=== PATIENT | female | born 1995 | race Caucasian/White ===

== ENCOUNTER 2018-02-20 11:38 | Inpatient (IN) | payer SELFPAY, OTHER ==
[2018-02-20 12:19] LABS: HEMATOCRIT 33.3 % (36.0-47.0); HEMOGLOBIN 11.2 g/dl (12.0-16.0); MEAN CORPUSCULAR HEMOGLOBIN 28.6 pg (27.0-33.0); MEAN CORPUSCULAR HGB CONC 33.6 g/dl (32.0-36.5); MEAN CORPUSCULAR VOLUME 85.2 fl (80.0-96.0); PLATELET COUNT, AUTOMATED 150 10^3/uL (150-450); RED BLOOD COUNT 3.91 10^6/uL (4.00-5.40); WHITE BLOOD COUNT 10.9 10^3/uL (4.0-10.0)
[2018-02-20 12:57] LABS: ALT/SGPT 17 U/L (12-78); AST/SGOT 13 U/L (7-37); BILIRUBIN,TOTAL 0.3 MG/DL (0.2-1.0); CREATININE FOR GFR 0.47 MG/DL (0.55-1.30); GLOMERULAR FILTRATION RATE > 60.0 (>60); LDH LACTATE DEHYDROGENASE 215 U/L (84-246); URIC ACID 4.2 MG/DL (2.6-6.0)
[2018-02-20 21:05] LABS: HEMATOCRIT 32.3 % (36.0-47.0); HEMOGLOBIN 10.7 g/dl (12.0-16.0); MEAN CORPUSCULAR HEMOGLOBIN 28.6 pg (27.0-33.0); MEAN CORPUSCULAR HGB CONC 33.1 g/dl (32.0-36.5); MEAN CORPUSCULAR VOLUME 86.4 fl (80.0-96.0); PLATELET COUNT, AUTOMATED 152 10^3/uL (150-450); RED BLOOD COUNT 3.74 10^6/uL (4.00-5.40); WHITE BLOOD COUNT 9.6 10^3/uL (4.0-10.0)
[2018-02-20 21:37] LABS: ALT/SGPT 18 U/L (12-78); AST/SGOT 14 U/L (7-37); BILIRUBIN,TOTAL 0.3 MG/DL (0.2-1.0); CREATININE FOR GFR 0.54 MG/DL (0.55-1.30); GLOMERULAR FILTRATION RATE > 60.0 (>60); LDH LACTATE DEHYDROGENASE 207 U/L (84-246); URIC ACID 4.6 MG/DL (2.6-6.0)
[2018-02-20] MEDS: ACETAMINOPHEN 500 MG TAB PO (21:42)
[2018-02-21] MEDS ORDERED: miSOPROStol 50 MCG 1/2 TAB (S0191) PO (08:45)
[2018-02-21] MEDS: miSOPROStol 50 MCG 1/2 TAB (S0191) PO ×4 (09:23→21:54)
[2018-02-21] MEDS: LR 1,000 ML IV ×2 (09:45→17:51)
[2018-02-21 09:47] LABS: HEMATOCRIT 29.9 % (36.0-47.0); MEAN CORPUSCULAR HEMOGLOBIN 28.7 pg (27.0-33.0); MEAN CORPUSCULAR HGB CONC 33.4 g/dl (32.0-36.5); MEAN CORPUSCULAR VOLUME 85.7 fl (80.0-96.0); PLATELET COUNT, AUTOMATED 133 10^3/uL (150-450); RED BLOOD COUNT 3.49 10^6/uL (4.00-5.40); WHITE BLOOD COUNT 8.5 10^3/uL (4.0-10.0)
[2018-02-21] MEDS: AMPICILLIN SOD 2 GM in APPROPRIATE DILUENT 20 ML IV (09:48)
[2018-02-21 10:17] LABS: ALT/SGPT 18 U/L (12-78); AST/SGOT 10 U/L (7-37); BILIRUBIN,TOTAL 0.3 MG/DL (0.2-1.0); CREATININE FOR GFR 0.49 MG/DL (0.55-1.30); GLOMERULAR FILTRATION RATE > 60.0 (>60); LDH LACTATE DEHYDROGENASE 180 U/L (84-246); URIC ACID 4.3 MG/DL (2.6-6.0)
[2018-02-21 11:30] LABS: AMPHETAMINES URINE REFLEX NEGATIVE (NEGATIVE); BARBITURATES URINE REFLEX NEGATIVE (NEGATIVE); BENZODIAZEPINES URINE REFLEX NEGATIVE (NEGATIVE); CANNABINOIDS URINE REFLEX NEGATIVE (NEGATIVE); COCAINE METABOLITE URINE REFLE NEGATIVE (NEGATIVE); METHADONE URINE REFLEX NEGATIVE (NEGATIVE); OPIATES URINE REFLEX NEGATIVE (NEGATIVE); PHENCYCLIDINE URINE REFLEX NEGATIVE (NEGATIVE)
[2018-02-21] MEDS: AMPICILLIN SOD 1 GM in APPROPRIATE DILUENT 10 ML IV ×3 (13:27→22:34)
[2018-02-22] MEDS: LR 1,000 ML IV (01:34)
[2018-02-22] MEDS: AMPICILLIN SOD 1 GM in APPROPRIATE DILUENT 10 ML IV ×5 (02:46→18:00)
[2018-02-22] MEDS: OXYTOCIN DRIP 30 UNITS in APPROPRIATE DILUENT 1 EA IV ×4 (07:44→18:41)
[2018-02-22 07:47] LABS: HEMATOCRIT 31.2 % (36.0-47.0); HEMOGLOBIN 10.4 g/dl (12.0-16.0); MEAN CORPUSCULAR HEMOGLOBIN 28.4 pg (27.0-33.0); MEAN CORPUSCULAR HGB CONC 33.3 g/dl (32.0-36.5); MEAN CORPUSCULAR VOLUME 85.2 fl (80.0-96.0); PLATELET COUNT, AUTOMATED 147 10^3/uL (150-450); RED BLOOD COUNT 3.66 10^6/uL (4.00-5.40); RED CELL DISTRIBUTION WIDTH 12.9 % (11.5-14.5); WHITE BLOOD COUNT 11.2 10^3/uL (4.0-10.0)
[2018-02-22] MEDS ORDERED: FENTANYL 2MCG/ML ROPIVACAINE 0.2% IN 0.9% NACL 200ML IVBAG As Ordered (08:09)
[2018-02-22 08:19] LABS: ALT/SGPT 14 U/L (12-78); AST/SGOT 11 U/L (7-37); BILIRUBIN,TOTAL 0.4 MG/DL (0.2-1.0); CREATININE FOR GFR 0.47 MG/DL (0.55-1.30); GLOMERULAR FILTRATION RATE > 60.0 (>60); LDH LACTATE DEHYDROGENASE 196 U/L (84-246); URIC ACID 4.6 MG/DL (2.6-6.0)
[2018-02-22] MEDS ORDERED: REFRIGERATOR IV KEYS XX (09:30)
[2018-02-22] MEDS ORDERED: FENTANYL/ROPIVACAINE/NACL BAG 200 ML EPIDURAL (09:30)
[2018-02-22] MEDS ORDERED: NALOXONE INJ 0.4 MG/1 ML VIAL (J2310) IV (09:30)
[2018-02-22] MEDS ORDERED: diphenhydrAMINE INJ 50MG/ML VIAL (J1200) IV (09:30)
[2018-02-22] MEDS ORDERED: EPIDURAL/PCA KEYS XX (09:30)
[2018-02-22] MEDS ORDERED: EPIDURAL COMMENT XX (09:30)
[2018-02-22] MEDS ORDERED: ePHEDrine SULFATE 25 MG/5 ML(5MG/ML) SYRINGE IV (09:30)
[2018-02-22] MEDS: ONDANSETRON 4MG/2ML VIAL (J2405) IV ×2 (09:47→17:45)
[2018-02-22] MEDS ORDERED: PHYTONADIONE 1 MG/0.5 ML SYRINGE (J3430) IM (15:15)
[2018-02-22] MEDS ORDERED: ERYTHROMYCIN OPHTH OINT OU (15:15)
[2018-02-22] MEDS ORDERED: HEPATITIS B VAC *BIRTH DOSE ONLY*(ENGERIX) 10 MCG/0.5 ML SYRINGE IM (15:15)
[2018-02-22] MEDS ORDERED: OXYTOCIN 30 UNITS IN 0.9% NaCl 500ML IV BAG (J2590) As Ordered ×2 (16:03→16:40)
[2018-02-22 16:34] LABS: MEAN CORPUSCULAR HGB CONC 32.6 g/dl (32.0-36.5); MEAN CORPUSCULAR VOLUME 88.9 fl (80.0-96.0); PLATELET COUNT, AUTOMATED 178 10^3/uL (150-450); RED BLOOD COUNT 2.62 10^6/uL (4.00-5.40); RED CELL DISTRIBUTION WIDTH 13.1 % (11.5-14.5); WHITE BLOOD COUNT 26.6 10^3/uL (4.0-10.0)
[2018-02-22 16:37] LABS: HEMOGLOBIN 7.6 g/dl (12.0-15.5)
[2018-02-22 16:38] LABS: HEMATOCRIT 23.3 % (36.0-47.0)
[2018-02-22 16:46] LABS: INR 1.15; PROTHROMBIN TIME 14.9 SECONDS (12.4-14.5)
[2018-02-22 16:47] LABS: FIBRINOGEN 338 MG/DL (221-452); PARTIAL THROMBOPLASTIN TIME 26.1 SECONDS (26.8-37.9)
[2018-02-22] MEDS ORDERED: ceFAZolin 2 GM/D5W 50 ML IV BAG (J0690 PER 500MG) As Ordered (16:51)
[2018-02-22] MEDS: CARBOPROST TROMETHAMINE 250 MCG/ML AMP IM (17:45)
[2018-02-22] MEDS: miSOPROStol 200 MCG TAB (S0191) PR (17:45)
[2018-02-22] MEDS ORDERED: OXYTOCIN DRIP 30 UNITS in APPROPRIATE DILUENT 1 EA IV (17:45)
[2018-02-22 18:01] LABS: HEMATOCRIT 27.5 % (36.0-47.0); MEAN CORPUSCULAR HEMOGLOBIN 28.8 pg (27.0-33.0); MEAN CORPUSCULAR HGB CONC 32.7 g/dl (32.0-36.5); MEAN CORPUSCULAR VOLUME 88.1 fl (80.0-96.0); PLATELET COUNT, AUTOMATED 126 10^3/uL (150-450); RED BLOOD COUNT 3.12 10^6/uL (4.00-5.40); RED CELL DISTRIBUTION WIDTH 13.1 % (11.5-14.5); WHITE BLOOD COUNT 22.4 10^3/uL (4.0-10.0)
[2018-02-22 18:18] LABS: PARTIAL THROMBOPLASTIN TIME 27.7 SECONDS (26.8-37.9)
[2018-02-22 18:21] LABS: INR 1.26
[2018-02-22] MEDS: miSOPROStol 50 MCG 1/2 TAB (S0191) PO (18:29)
[2018-02-22] MEDS: LACTATED RINGER'S 1000 ML IV (18:30)
[2018-02-22] MEDS ORDERED: METHYLERGONOVINE MALEATE 0.2 MG TAB PO (18:45)
[2018-02-22] MEDS ORDERED: DIBUCAINE 1% OINTMENT 30GM TOP (18:45)
[2018-02-22] MEDS ORDERED: DOCUSATE SODIUM 100 MG CAP PO (18:45)
[2018-02-22] MEDS ORDERED: IBUPROFEN 800 MG TAB PO (18:45)
[2018-02-22] MEDS ORDERED: ACETAMINOPHEN 500 MG TAB PO (18:45)
[2018-02-22] MEDS ORDERED: MEASLES,MUMPS,RUBELLA VACCINE INJ (MMR-II) (90707) SC (18:45)
[2018-02-22 23:12] LABS: HEMATOCRIT 22.9 % (36.0-47.0); HEMOGLOBIN 7.6 g/dl (12.0-15.5); MEAN CORPUSCULAR HEMOGLOBIN 28.6 pg (27.0-33.0); MEAN CORPUSCULAR HGB CONC 33.2 g/dl (32.0-36.5); MEAN CORPUSCULAR VOLUME 86.1 fl (80.0-96.0); PLATELET COUNT, AUTOMATED 117 10^3/uL (150-450); RED BLOOD COUNT 2.66 10^6/uL (4.00-5.40); RED CELL DISTRIBUTION WIDTH 13.7 % (11.5-14.5); WHITE BLOOD COUNT 20.6 10^3/uL (4.0-10.0)
[2018-02-23 06:56] LABS: HEMATOCRIT 19.9 % (36.0-47.0); MEAN CORPUSCULAR HEMOGLOBIN 28.8 pg (27.0-33.0); MEAN CORPUSCULAR HGB CONC 34.2 g/dl (32.0-36.5); MEAN CORPUSCULAR VOLUME 84.3 fl (80.0-96.0); PLATELET COUNT, AUTOMATED 112 10^3/uL (150-450); RED BLOOD COUNT 2.36 10^6/uL (4.00-5.40); RED CELL DISTRIBUTION WIDTH 14.2 % (11.5-14.5)
[2018-02-23 06:59] LABS: HEMOGLOBIN 6.8 g/dl (12.0-15.5)
[2018-02-23 07:22] LABS: ALT/SGPT 15 U/L (12-78); AST/SGOT 26 U/L (7-37); BILIRUBIN,TOTAL 0.3 MG/DL (0.2-1.0); CREATININE FOR GFR 0.49 MG/DL (0.55-1.30); GLOMERULAR FILTRATION RATE > 60.0 (>60); LDH LACTATE DEHYDROGENASE 279 U/L (84-246); URIC ACID 5.3 MG/DL (2.6-6.0)
[2018-02-23 09:27] LABS: IMMEDIATE SPIN CROSSMATCH 1 6
[2018-02-23 12:19] LABS: HEMATOCRIT 25.1 % (36.0-47.0); HEMOGLOBIN 8.6 g/dl (12.0-15.5); MEAN CORPUSCULAR HEMOGLOBIN 28.9 pg (27.0-33.0); MEAN CORPUSCULAR HGB CONC 34.3 g/dl (32.0-36.5); MEAN CORPUSCULAR VOLUME 84.2 fl (80.0-96.0); PLATELET COUNT, AUTOMATED 108 10^3/uL (150-450); RED BLOOD COUNT 2.98 10^6/uL (4.00-5.40); WHITE BLOOD COUNT 13.9 10^3/uL (4.0-10.0)
[2018-02-23] MEDS: PRENATAL VITAMINS CHEWABLE TABLET PO (14:51)
[2018-02-24 08:10] LABS: HEMATOCRIT 22.7 % (36.0-47.0); MEAN CORPUSCULAR HEMOGLOBIN 28.8 pg (27.0-33.0); MEAN CORPUSCULAR HGB CONC 33.5 g/dl (32.0-36.5); PLATELET COUNT, AUTOMATED 101 10^3/uL (150-450); RED BLOOD COUNT 2.64 10^6/uL (4.00-5.40); RED CELL DISTRIBUTION WIDTH 14.2 % (11.5-14.5); WHITE BLOOD COUNT 10.7 10^3/uL (4.0-10.0)
[2018-02-24 08:12] LABS: HEMOGLOBIN 7.6 g/dl (12.0-15.5)
[2018-02-24 08:48] LABS: FETAL SCREEN PROF. 1 1
[2018-02-24] MEDS: PRENATAL VITAMINS CHEWABLE TABLET PO (09:08)
[2018-02-24] MEDS: RHOGAM 300 MCG (1500 IU) INJ (J2790) IM (09:09)
== END 2018-02-24 11:45 | disposition home or self-care (01) | DRG 541 ==
LOC: M LDO 11:38 → M LDI 14:33 → M OBS 02-23 13:43
PROC: 3E0DXGC Introduction of Other Therapeutic Substance into Mouth and Pharynx, External Approach (ICD-10-PCS; 2018-02-21)
PROC: 10E0XZZ Delivery of Products of Conception, External Approach (ICD-10-PCS; principal; 2018-02-22)
PROC: 10D17Z9 Manual Extraction of Products of Conception, Retained, Via Natural or Artificial Opening (ICD-10-PCS; 2018-02-22)
PROC: 30233N1 Transfusion of Nonautologous Red Blood Cells into Peripheral Vein, Percutaneous Approach (ICD-10-PCS; 2018-02-22)
PROC: 30233S1 Transfusion of Nonautologous Globulin into Peripheral Vein, Percutaneous Approach (ICD-10-PCS; 2018-02-24)
DX: O14.94 Unspecified pre-eclampsia, complicating childbirth (principal); O72.0 Third-stage hemorrhage; Z37.0 Single live birth; Z3A.37 37 weeks gestation of pregnancy; Z91.040 Latex allergy status; O69.81X0 Labor and delivery complicated by cord around neck, without compression, not applicable or unspecified

== ENCOUNTER → 2018-02-20 | Outpatient (REF) | payer SELFPAY, OTHER | LOC: M LAB REF 13:22 | DX: Z34.03 Encounter for supervision of normal first pregnancy, third trimester (principal); Z3A.36 36 weeks gestation of pregnancy | CPT/HCPCS: 87081 ==

== ENCOUNTER → 2020-04-22 | Outpatient (REF) | payer OTHER ==
[~2020-04-22] MED LIST: FERR325T3 PO; IBUP-1114 PO; MAPA500T2 PO; PRENTAB9 PO
[2020-04-22 13:57] LABS: HEMATOCRIT 41.6 % (36.0-47.0); HEMOGLOBIN 14.3 g/dl (12.0-15.5); MEAN CORPUSCULAR HEMOGLOBIN 29.6 pg (27.0-33.0); MEAN CORPUSCULAR HGB CONC 34.4 g/dl (32.0-36.5); MEAN CORPUSCULAR VOLUME 86.1 fl (80.0-96.0); PLATELET COUNT, AUTOMATED 186 10^3/uL (150-450); RED BLOOD COUNT 4.83 10^6/uL (4.00-5.40); WHITE BLOOD COUNT 9.2 10^3/uL (4.0-10.0)
[2020-04-22 14:25] LABS: ALT/SGPT 25 U/L (12-78); BILIRUBIN,TOTAL 0.3 MG/DL (0.2-1.0); CREATININE FOR GFR 0.57 MG/DL (0.55-1.30); GLOMERULAR FILTRATION RATE > 60.0 (>60); LDH LACTATE DEHYDROGENASE 191 U/L (84-246); URIC ACID 3.2 MG/DL (2.6-6.0)
[2020-04-22 15:08] LABS: HEPATITIS C VIRUS ABY INDEX 0.1 INDEX (<0.8)
[2020-04-22 15:10] LABS: HIV 1&2 SCREEN CENTAUR NEGATIVE (NEGATIVE)
== END ==
LOC: M PLALAB 11:20
PROVIDERS: ATTEND Advanced Practice Midwife
DX: O09.291 Supervision of pregnancy with other poor reproductive or obstetric history, first trimester (principal)

== ENCOUNTER → 2020-04-24 | Outpatient (CLI) | payer OTHER ==
--- NOTE | 2020-04-25 11:09 | REP ---
REASON: Menorrhagia. Transvesical and transvaginal imaging was performed. The uterus measures 10.1 x 5 x 6.9 cm. The parenchymal echopattern is heterogenous. The endometrial echo complex is upper limits of normal in this age group, measuring 2 cm and is slightly heterogenous. There is no free fluid in the cul-de-sac. The right ovary measures 2.9 x 2 x 1.4 cm and is within normal limits with an RI 0.4. Left ovary measures 3.4 x 2.8 x 2.4 cm and is within normal limits with an RI 0.47. There is a dominant follicle in the left ovary. IMPRESSION: 1. Endometrial echo complex upper of normal, as described above. 2. Dominant follicle left ovary.
== END ==
LOC: M WHC 14:48
PROVIDERS: ATTEND Advanced Practice Midwife
DX: O09.291 Supervision of pregnancy with other poor reproductive or obstetric history, first trimester (principal)

== ENCOUNTER → 2020-05-20 | Outpatient (REF) | payer OTHER ==
[~2020-05-20] MED LIST changes: +ASPI81CH33 PO; +IRON325T9 PO
[2020-05-20 18:31] LABS: TOTAL PROTEIN,RANDOM URINE 21.4 MG/DL (0.0-12.0)
[2020-05-20 22:03] LABS: CHLAMYDIA DNA AMPLIFICATION NEGATIVE (NEGATIVE); GC DNA AMPLIFICATION NEGATIVE (NEGATIVE)
== END ==
LOC: M SFHCWAGY 17:40
PROVIDERS: ATTEND Advanced Practice Midwife
DX: O09.291 Supervision of pregnancy with other poor reproductive or obstetric history, first trimester (principal)

== ENCOUNTER → 2020-05-21 | Outpatient (CLI) | payer OTHER | LOC: M PLALAB 11:13 | PROVIDERS: ATTEND Advanced Practice Midwife | DX: O30.049 Twin pregnancy, dichorionic/diamniotic, unspecified trimester (principal) ==

== ENCOUNTER → 2020-06-09 | Outpatient (CLI) | payer OTHER ==
--- NOTE | 2020-06-09 12:21 | REP ---
TWIN OB ULTRASOUND: Real-time sonographic evaluation of the gravid uterus performed. There is a living intrauterine diamniotic/dichorionic twin gestation with estimated gestational age 13 weeks 5 days. There is concordant growth. There is no subchorionic hemorrhage. There is no maternal adnexal region abnormality. Estimated gestational age 13 weeks 5 day with EDC 12/10/2020. Cervix is closed and measures 3.6 cm in length. FETUS A: [place]-rump length 75 mm equal 13 weeks 4 days 46th percentile. heart rate 161 beats per minute. FETUS B: [place]-rump length 76 mm equals 13 weeks 5 days 50th percentile. heart rate 170 beats per minute.
== END ==
LOC: M WHC 09:18
PROVIDERS: ATTEND Advanced Practice Midwife
DX: O20.0 Threatened abortion (principal); Z3A.13 13 weeks gestation of pregnancy; O30.041 Twin pregnancy, dichorionic/diamniotic, first trimester

== ENCOUNTER → 2020-06-09 | Outpatient (REF) | payer OTHER | LOC: M PLALAB 09:53 | PROVIDERS: ATTEND Advanced Practice Midwife | DX: O20.0 Threatened abortion (principal) | CPT/HCPCS: 36415; 86850; 86900; 86901; J2790 ==

== ENCOUNTER → 2020-07-16 | Outpatient (CLI) | payer OTHER ==
--- NOTE | 2020-08-20 10:43 | REP ---
OBSTETRIC ULTRASOUND FOR ANATOMY IN TWIN GESTATION [place] in reporting results from hospital computer system malfunction from [employer]. DATE: 07/16/2020. FINDINGS: Twin A is in the lower uterine segment with the head to the maternal left. Twin B is in the uterine fundus with the head to the maternal right. TWIN A: The placenta is posterior. There is no previa or abruptio. The placenta is grade 0. heart rate is 160 beats per minute. Subjectively, the amniotic fluid volume is normal. The cervix measures 5.1 cm in length. The composite ultrasound gestational age is 18 weeks, 5 days. The estimated weight is 246 grams. This is the 22nd percentile. Subjectively, the amniotic fluid volume is normal. The following anatomic structures are identified and are unremarkable: Cisterna magna, cavum septum pellucidum, thalami, spine, stomach, kidneys, bladder, three-vessel cord, cord insertion, and upper and lower extremities. Suboptimally demonstrated because of position are the four-chamber view of the heart, and the cardiac right and left ventricular outflow tracts. A followup study dedicated to these structures might be considered. TWIN B: The placenta is posterior, grade 0, without previa or abruptio. heart rate is 159 beats per minute. Subjectively, the amniotic fluid volume is normal. The composite gestational age is 19 weeks, 1 day. The weight is 266 grams. This is the 42nd percentile. The following anatomic structures are identified and are unremarkable: Cisterna magna, cavum septum pellucidum, thalami, stomach, kidneys, bladder, three-vessel cord, cord insertion, and upper and lower extremities. Suboptimally demonstrated are the spine, four-chamber view of the heart, and the cardiac right and left ventricular outflow tracts. A followup study dedicated to these structures might be considered. MTDD
== END ==
LOC: M WHC 14:32
PROVIDERS: ATTEND Advanced Practice Midwife
DX: Z34.82 Encounter for supervision of other normal pregnancy, second trimester (principal)

== ENCOUNTER → 2020-08-20 | Outpatient (CLI) | payer OTHER ==
[~2020-08-20] MED LIST changes: -ASPI81CH33 PO; -IRON325T9 PO
--- NOTE | 2020-08-27 09:27 | REP ---
OBSTETRIC SONOGRAPHY: MULTIPLE GESTATION HISTORY: Twins for follow-up anatomy. hearts and outflow tract views and spine in twin A. FINDINGS: Scanning through the gravid uterus demonstrates a diamniotic dichorionic twin gestation. Placenta is posterior grade 0 without evidence of previa or abruption. Closed cervical length is 3.9 cm viewed transabdominally. There has been concordant and appropriate growth. Twin A is transverse, head to the maternal left, and along the maternal left side. Twin B is transverse, head to the maternal right, and on the maternal right side. Amniotic fluid is subjectively normal. No extrauterine abnormality is observed. Twin A, due to position, we were again unable to adequately evaluate four chamber heart, left and right ventricular outflow tract views. Facial profile, nose and lips, and spine with four chamber heart left and right ventricular outflow tract views were achieved and are felt to be unremarkable on Twin B. FETUS A BIOMETRY CHART: BPD 5.8 cm 23 weeks 6 days Head circumference 21.1 cm 23 weeks 1 day Abdominal circumference 19.2 cm 23 weeks 6 days Femur length 4.2 cm 23 weeks 4 days Humeral length 3.9 cm 24 weeks 0 days AC/HC ratio 1.10 Normal Cephalic index 0.78 Normal Estimated weight 622 grams, 1 pound 5 ounces, 30th percentile for 24 weeks 0 days. FETUS B BIOMETRY CHART: BPD 5.8 cm 23 weeks 6 days Head circumference 21.6 cm 23 weeks 5 days Abdominal circumference 19.2 cm 24 weeks 0 days Femur length 4.3 cm 24 weeks 1 day Humeral length 4.0 cm 24 weeks 1 day AC/HC ratio 1.12 Normal Cephalic index 0.75 Normal Estimated weight 651 grams, 1 pound 6 ounces, 42nd percentile for 24 weeks 0 days. IMPRESSION: Viable twin intrauterine gestation in transverse lie. anatomic survey for twin A remains incomplete. 24 weeks 0 day gestational age estimate. Estimated date of delivery (TERRY) by prior sonography 12/10/2020. [facility]
== END ==
LOC: M WHC 09:52
PROVIDERS: ATTEND Obstetrics & Gynecology
DX: O30.042 Twin pregnancy, dichorionic/diamniotic, second trimester (principal); Z3A.24 24 weeks gestation of pregnancy

== ENCOUNTER → 2020-09-03 | Outpatient (CLI) | payer OTHER ==
[2020-09-03 13:44] LABS: BASO % 0.3 % (0.0-1.0); EOS # 0.1 10^3/uL (0.0-0.5); EOS % 0.7 % (0.0-3.0); HEMATOCRIT 28.9 % (36.0-47.0); HEMOGLOBIN 9.5 g/dl (12.0-15.5); LYMPH # 1.3 10^3/uL (1.5-5.0); LYMPH % 13.1 % (24.0-44.0); MEAN CORPUSCULAR HEMOGLOBIN 28.4 pg (27.0-33.0); MEAN CORPUSCULAR HGB CONC 32.9 g/dl (32.0-36.5); MEAN CORPUSCULAR VOLUME 86.5 fl (80.0-96.0); MONO # 0.5 10^3/uL (0.0-0.8); MONO % 5.5 % (0.0-5.0); NEUTROPHILS # 7.4 10^3/uL (1.5-8.5); NEUTROPHILS % 78.2 % (36.0-66.0); PLATELET COUNT, AUTOMATED 214 10^3/uL (150-450); RED BLOOD COUNT 3.34 10^6/uL (4.00-5.40); WHITE BLOOD COUNT 9.5 10^3/uL (4.0-10.0)
== END ==
LOC: M PLALAB 09:44
PROVIDERS: ATTEND Advanced Practice Midwife
DX: O30.042 Twin pregnancy, dichorionic/diamniotic, second trimester (principal); Z3A.00 Weeks of gestation of pregnancy not specified
CPT/HCPCS: 36415; 82950; 85025; 86850; 86900; 86901; J2790

== ENCOUNTER → 2020-09-14 | Outpatient (CLI) | payer OTHER ==
[~2020-09-14] MED LIST changes: +ASPI81CH33 PO; +IRON325T9 PO
--- NOTE | 2020-09-14 12:25 | REP ---
INDICATION: GROWTH COMPARISON: 08/20/2020 TECHNIQUE: Transabdominal obstetrical ultrasound with color Doppler evaluation. FINDINGS: Examination demonstrates dichorionic diamniotic twin live intrauterine . Gestational age by LMP 27 weeks 0 days with estimated date of delivery 12/14/2020. Cervix measures 3.5 cm in length and appears closed. TWIN A: Breech presentation towards left side of the uterus. heart rate equals 155 beats per minute. Placenta noted posteriorly and grade 1. Amniotic fluid volume deepest pocket: 4.3 cm Estimated weight by biometric measurements 958 g (24th percentile) TWIN B: Transverse presentation towards right side of the uterus. heart rate equals 156 beats per minute. Placenta noted posteriorly and grade 1. Amniotic fluid volume deepest pocket: 4.6 cm Estimated weight by biometric measurements 1021 g (40th percentile) IMPRESSION: Twin gestation demonstrating appropriate concordant interval growth. No gross abnormalities are identified. <Electronically signed by Celio Hu > 09/14/20 [id number]
== END ==
LOC: M WHC 11:19
PROVIDERS: ATTEND Advanced Practice Midwife
DX: O30.042 Twin pregnancy, dichorionic/diamniotic, second trimester (principal); Z3A.27 27 weeks gestation of pregnancy; O32.1XX1 Maternal care for breech presentation, fetus 1

== ENCOUNTER 2020-10-02 12:35 | Outpatient (CLI) | payer OTHER ==
[2020-10-02] VITALS (7 sets, daily range): BP systolic 123–143; BP diastolic 71–93
[~2020-10-02] VITALS: Ht 160 cm; Wt 97.6 kg
[~2020-10-02 12:35] MED LIST changes: -ASPI81CH33 PO; -IRON325T9 PO
[2020-10-02] MEDS ORDERED: ASPI81CH33 PO (13:12)
[2020-10-02] MEDS ORDERED: IRON325T9 PO (13:13)
[2020-10-02 13:31] LABS: HEMATOCRIT 29.2 % (36.0-47.0); HEMOGLOBIN 9.3 g/dl (12.0-15.5); MEAN CORPUSCULAR HEMOGLOBIN 26.8 pg (27.0-33.0); MEAN CORPUSCULAR HGB CONC 31.8 g/dl (32.0-36.5); MEAN CORPUSCULAR VOLUME 84.1 fl (80.0-96.0); PLATELET COUNT, AUTOMATED 206 10^3/uL (150-450); RED BLOOD COUNT 3.47 10^6/uL (4.00-5.40); WHITE BLOOD COUNT 10.3 10^3/uL (4.0-10.0)
[2020-10-02 13:57] LABS: ALT/SGPT 11 U/L (12-78); BILIRUBIN,TOTAL 0.3 MG/DL (0.2-1.0); CREATININE FOR GFR 0.44 MG/DL (0.55-1.30); GLOMERULAR FILTRATION RATE > 60.0 (>60); LDH LACTATE DEHYDROGENASE 202 U/L (84-246); URIC ACID 2.7 MG/DL (2.6-6.0)
[2020-10-02 14:20] LABS: TOTAL PROTEIN,RANDOM URINE 11.3 MG/DL (0.0-12.0)
[2020-10-02] MEDS ORDERED: BETAMETHASONE SOLUSPAN 6MG/ML 5ML VIAL (J0702 PER 3MG) IM ONE (14:45)
--- NOTE | 2020-10-02 14:59 | IPNPDOC ---
Text Note Date of Service The patient was seen on 10/02/20. NOTE Outpatient Subjective: Cherri is a 25 y/o who is 29.4 weeks today with Di/Di Twins, EGA by First Trimester U/S at 6.1weeks, TERRY 12/14/2020. She started her care with [facility] in the first trimester. OB History significant for Preeclampsia with last at 36 weeks with delivery at 37weeks. She presented to the office today with elevated BPs (140s/100s). A transabdominal U/S was done at the office by Dr. Chand and MVP 3cm/4cm with active FM and FHR 130s/160s per office records. She was sent to Labor and Delivery for NST and lab work to be drawn for preeclampsia. Currently she denies headache, visual changes, nausea/vomiting. Reports intermittent RUQ pain, none currently. Reports active movement x2, and denies contractions, LOF, vaginal bleeding. Objective: Preeclamptic labs today were significant for P:C ratio of 0.33 elevated from baseline of 0.08 (05/20/20). PLT 206, AST 11, ALT 11, Uric Acid 2.7. CBC showed H/H 9.3/29.2. Twin A and B had Cat. 1 FHR tracings. Occasional contraction on [place], patient did not feel them. Blood pressures here ranged from 123-142/76-93 Assessment: Mild Preeclampsia Plan: Reviewed case with Dr. Chand and she outlined the plan to start 24hr urine today and start Betamethasone for lung maturity. Patient to be on modified bedrest. Continue with Aspirin 81mg PO daily, Ferrous Sulfate 325mg BID. Reviewed diagnosis and plan with patient. Anticipatory guidance for possible , with hope to get her to 32 weeks if possible given patient's clinical condition. Reviewed and stressed importance of regularly taking Aspirin and Ferrous Sulfate, as patient reports not taking it regularly. She will return to L&D tomorrow for 2nd dose of Betamethasone and to return her 24hr urine and weekly office visits. Next office appointment on 10/08/20. VS,Fishbone, I+O VS, Fishbone, I+O Laboratory Tests 10/02/20 13:12 Vital Signs Date Time Temp Pulse Resp B/P (MAP) Pulse Ox O2 Delivery O2 Flow Rate FiO2 10/02/20 13:40 114 18 123/76 (92) Shira Bowers CNM Oct 02, 2020 14:55
== END 2020-10-02 15:02 | disposition home or self-care (01) ==
LOC: M LDO 12:35
PROVIDERS: ATTEND Advanced Practice Midwife
DX: O16.2 Unspecified maternal hypertension, second trimester (principal); O30.042 Twin pregnancy, dichorionic/diamniotic, second trimester; Z3A.27 27 weeks gestation of pregnancy
CPT/HCPCS: 36415; 59025; 82247; 82565; 82570; 83615; 84156; 84450; 84460; 84550; 85027; 96372; J0702

== ENCOUNTER 2020-10-03 14:56 | Outpatient (CLI) | payer OTHER ==
[~2020-10-03] VITALS: Ht 160 cm; Wt 97.6 kg
[~2020-10-03 14:56] MED LIST changes: +ASPI81CH33 PO; +IRON325T9 PO
[2020-10-03 15:10] VITALS: BP 130/82
[2020-10-03] MEDS ORDERED: BETAMETHASONE SOLUSPAN 6MG/ML 5ML VIAL (J0702 PER 3MG) IM ONE (15:30)
[2020-10-03 16:00] LABS: TOTAL PROTEIN 24 HOUR URINE 528.9 MG/24HR (50-150); URINE TOTAL PROTEIN 24.6 MG/DL (0-12)
== END 2020-10-03 15:31 | disposition home or self-care (01) ==
LOC: M LDO 14:56
PROVIDERS: ATTEND Obstetrics & Gynecology
DX: Z36.89 Encounter for other specified antenatal screening (principal); O14.03 Mild to moderate pre-eclampsia, third trimester; Z3A.29 29 weeks gestation of pregnancy
CPT/HCPCS: 81050; 84156; 96372; J0702

== ENCOUNTER → 2020-10-07 | Outpatient (CLI) | payer OTHER ==
--- NOTE | 2020-10-08 08:43 | REP ---
INDICATION: GROWTH, TWINS COMPARISON: 09/14/2020 TECHNIQUE: Transabdominal obstetrical ultrasound with color Doppler evaluation. FINDINGS: Examination demonstrates advanced diamniotic dichorionic live twin intrauterine . Gestational age by LMP 30 weeks 2 days with estimated date of delivery 12/14/2020. Cervix 4.2 cm and appears closed. TWIN A: Transverse presentation. heart rate equals 152 beats per minute. Placenta noted posteriorly and grade 2. Amniotic fluid volume deepest pocket: 4.5 cm Estimated weight by biometric measurements 1441 g (10th percentile) Limited anatomical assessment demonstrates normal four-chamber heart, and cardiac ventricular outflow tracts. TWIN B: Transverse presentation. heart rate equals 163 beats per minute. Placenta noted posteriorly and grade 2. Amniotic fluid volume deepest pocket: 6.4 cm Estimated weight by biometric measurements 1808 g (65th percentile) IMPRESSION: Twin gestation demonstrating somewhat discordant growth and correlation/follow-up may be warranted. <Electronically signed by Celio Hu > 10/08/20 0841
== END ==
LOC: M WHC 12:52
PROVIDERS: ATTEND Advanced Practice Midwife
DX: O30.043 Twin pregnancy, dichorionic/diamniotic, third trimester (principal); Z3A.30 30 weeks gestation of pregnancy

== ENCOUNTER → 2020-10-08 | Outpatient (CLI) | payer OTHER ==
[~2020-10-08] MED LIST changes: +IBUP80TA PO; +PERCOCET PO
--- NOTE | 2020-10-08 13:18 | REP ---
INDICATION: BPP - STAT. COMPARISON: 10/07/2020 OB ultrasound TECHNIQUE: Twin Ob biophysical profile FINDINGS: Study again shows twin suggest station with dichorionic diamniotic features. Cervix closed at 3.4 cm long Twin A is transverse and inferior with posterior grade 1 placenta without previa or abruption. Three-vessel cord was seen. heart activity 134. The amniotic fluid volume is visually normal. An Doppler tracing with mid umbilical arteries show SD ratio 3.2 and 2.8 which is normal. Largest fluid pocket was 4.2 cm. Biophysical profile twin A: Breathing 2, tone 2, movement 2, AFV 2 Twin B is transverse and superior with posterior grade 1 placenta without previa or abruption. Three-vessel cord was seen. In cord Doppler for the [address] ratio 2.99 and 2.45, normal. Three vessels are seen. heart rate 150. Amniotic fluid volume is visually normal. Largest fluid pocket 4.8 cm. Biophysical profile twin B: Breathing 2, tone 2, movement 2, AFV 2 IMPRESSION: 1. Dichorionic diamniotic twin with twin a transverse inferior in twin B transverse superior and posterior placenta. Normal cord Doppler, amniotic fluid volume and posterior grade 1 placenta without previa or abruption 2. Bilateral profile score 8/8 for each twin. 3. Cervix closed and 3.4 cm long. <Electronically signed by Jose Middleton > 10/08/20 [id number]
== END ==
LOC: M WHC 12:17
PROVIDERS: ATTEND Advanced Practice Midwife
DX: O36.5931 Maternal care for other known or suspected poor fetal growth, third trimester, fetus 1 (principal); O30.049 Twin pregnancy, dichorionic/diamniotic, unspecified trimester; Z3A.00 Weeks of gestation of pregnancy not specified

== ENCOUNTER → 2020-10-15 | Outpatient (CLI) | payer OTHER ==
[~2020-10-15] MED LIST changes: -IBUP80TA PO; -PERCOCET PO
--- NOTE | 2020-10-15 15:52 | REP ---
INDICATION: GROWTH/TWINS COMPARISON: 10/08/2020 TECHNIQUE: Transabdominal obstetrical ultrasound with color Doppler evaluation. FINDINGS: Examination demonstrates dichorionic diamniotic twin live intrauterine . Gestational age by LMP 31 weeks 3 days with estimated date of delivery 12/14/2020. Cervix measures 3.0 cm in length and appears closed. TWIN A: Breech presentation towards right side of the uterus. heart rate equals 147 beats per minute. Placenta noted posterior and grade 2. Amniotic fluid volume deepest pocket: 5.8 cm Biophysical profile score: 8/8 Umbilical artery 1 SD ratio: 2.39 (1.84-3.87) Umbilical artery 2 SD ratio: 3.04 TWIN B: Breech presentation towards left side of the uterus. heart rate equals 147 beats per minute. Placenta noted posterior and grade 2. Amniotic fluid volume deepest pocket: 4.8 cm Biophysical profile score: 8/8 Umbilical artery 1 SD ratio: 2.60 (1.84-3.87) Umbilical artery 2 SD ratio: 2.57 IMPRESSION: Twin gestation demonstrating normal biophysical profile score, umbilical artery SD ratios, and amniotic fluid volumes. <Electronically signed by Celio Hu > 10/15/20 [id number]
== END ==
LOC: M WHC 13:43
PROVIDERS: ATTEND Advanced Practice Midwife
DX: O36.5931 Maternal care for other known or suspected poor fetal growth, third trimester, fetus 1 (principal); O32.1XX2 Maternal care for breech presentation, fetus 2; O32.1XX1 Maternal care for breech presentation, fetus 1; Z3A.31 31 weeks gestation of pregnancy

== ENCOUNTER → 2020-10-20 | Outpatient (CLI) | payer OTHER ==
[~2020-10-20] MED LIST changes: +IBUP80TA PO; +PERCOCET PO
--- NOTE | 2020-10-20 08:37 | REP ---
INDICATION: TWIN GESTATION,GROWTH,BPP COMPARISON: 10/15/2020 TECHNIQUE: Transabdominal obstetrical ultrasound with color Doppler evaluation. FINDINGS: Examination demonstrates advanced diamniotic dichorionic twin gestation. Cervix measures 3.3 cm in length and appears closed. Gestational age by LMP at 32 weeks 1 day with estimated date of delivery 12/14/2020. TWIN A: Twin A identified in breech presentation along the maternal left side. Placenta is noted posterior and grade grade 2 without evidence for placenta previa or abruption. motion is appreciated. Amniotic fluid volume is normal and the deepest pocket measures 4.5 cm. FHR equals 144 beats per minute. Biophysical profile score: 8/8 Umbilical artery 1 SD ratio: 2.94 (1.84-3.86) Umbilical artery 2 SD ratio: 2.70 Gestational age by current measurements: 30 weeks 2 days. Estimated weight by current biometric measurements 1613 grams (<3rd percentile based on age by LMP). Limited anatomical assessment without obvious abnormality. TWIN B: Twin B identified in cephalic presentation along the maternal right side. Placenta is noted posterior and grade grade 2 without evidence for placenta previa or abruption. motion is appreciated. Amniotic fluid volume is normal and the deepest pocket measures 5.9 cm. FHR equals 150 beats per minute. Physical profile score: 8/8 Umbilical artery 1 SD ratio: 2.32 (1.84-3.86) Gestational age by current measurements: 33 weeks 3 days. Estimated weight by current biometric measurements 2144 grams (75th percentile based on age by LMP). Limited anatomical assessment without obvious abnormality. IMPRESSION: Advanced diamniotic dichorionic twin gestation demonstrating discordant growth. Biophysical profile scores and amniotic fluid volumes are normal. <Electronically signed by Celio Hu > 10/20/20 0854
== END ==
LOC: M WHC 06:36
PROVIDERS: ATTEND Advanced Practice Midwife
DX: O36.5931 Maternal care for other known or suspected poor fetal growth, third trimester, fetus 1 (principal); O30.043 Twin pregnancy, dichorionic/diamniotic, third trimester; O32.1XX1 Maternal care for breech presentation, fetus 1; Z3A.30 30 weeks gestation of pregnancy

== ENCOUNTER → 2020-10-28 | Outpatient (CLI) | payer OTHER ==
--- NOTE | 2020-10-29 02:45 | REP ---
INDICATION: TWIN GEST/GROWTH/BPP COMPARISON: 10/20/2020 TECHNIQUE: Transabdominal obstetrical ultrasound with color Doppler evaluation. FINDINGS: Examination demonstrates advanced dichorionic diamniotic live intrauterine twin . Gestational age by LMP 33 weeks 2 days with estimated date of delivery 12/14/2020. Cervix 3.5 cm and appears closed. TWIN A: Breech presentation towards left side of the uterus. heart rate equals 153 beats per minute. Placenta noted posterior and grade 3. Amniotic fluid volume deepest pocket: 4.9 cm Estimated weight by biometric measurements 1808 g less than 3rd percentile Biophysical profile score: 8/8 Umbilical artery 1 SD ratio: 2.58 (1.77-3.74) Umbilical artery 2 SD ratio: 2.90 TWIN B: Cephalic/variable towards right side of the uterus. heart rate equals 165 beats per minute. Placenta noted posterior and grade 2. Amniotic fluid volume deepest pocket: 7.1 Estimated weight by biometric measurements 2394 g 72nd percentile Biophysical profile score: 8/8 Umbilical artery 1 SD ratio: 2.47 Umbilical artery 2 SD ratio: 2.47 IMPRESSION: Twin gestation demonstrating discordant growth, but consistent interval growth when compared with prior examination. Biophysical profile score and amniotic fluid volumes are within normal range. <Electronically signed by Celio Hu > 10/29/20 1717
== END ==
LOC: M PLAIMG 12:57
PROVIDERS: ATTEND Obstetrics & Gynecology
DX: O30.043 Twin pregnancy, dichorionic/diamniotic, third trimester (principal); O36.5931 Maternal care for other known or suspected poor fetal growth, third trimester, fetus 1; Z3A.33 33 weeks gestation of pregnancy; O32.1XX1 Maternal care for breech presentation, fetus 1

== ENCOUNTER 2020-10-29 14:21 | Inpatient (IN) | payer OTHER ==
[~2020-10-29] VITALS: Ht 160 cm; Wt 94.6 kg
[2020-10-29] VITALS (12 sets, daily range): BP systolic 135–160; BP diastolic 72–101
[~2020-10-29 14:21] MED LIST changes: -IBUP80TA PO; -PERCOCET PO
[2020-10-29] MEDS ORDERED: PRENTAB9 PO (14:33)
[2020-10-29] MEDS ORDERED: LR 1,000 ML IV SCH (15:14)
[2020-10-29 15:45] LABS: HEMATOCRIT 35.4 % (36.0-47.0); HEMOGLOBIN 11.5 g/dl (12.0-15.5); MEAN CORPUSCULAR HGB CONC 32.5 g/dl (32.0-36.5); MEAN CORPUSCULAR VOLUME 86.1 fl (80.0-96.0); PLATELET COUNT, AUTOMATED 177 10^3/uL (150-450); RED BLOOD COUNT 4.11 10^6/uL (4.00-5.40); WHITE BLOOD COUNT 9.8 10^3/uL (4.0-10.0)
[2020-10-29 16:33] LABS: ALT/SGPT 9 U/L (12-78); BILIRUBIN,TOTAL 0.3 MG/DL (0.2-1.0); CREATININE FOR GFR 0.43 MG/DL (0.55-1.30); GLOMERULAR FILTRATION RATE > 60.0 (>60); LDH LACTATE DEHYDROGENASE 181 U/L (84-246); URIC ACID 4.1 MG/DL (2.6-6.0)
[2020-10-29] MEDS ORDERED: BICITRA 30ML SOLN UDC PO ONE (17:45)
[2020-10-29] MEDS ORDERED: ceFAZolin SOD 2 GM in IV 1 EA IV ONE (17:45)
[2020-10-29] MEDS ORDERED: BICITRA 30ML SOLN UDC As Ordered ONE (17:47)
[2020-10-29] MEDS ORDERED: ePHEDrine SULFATE 25 MG/5 ML(5MG/ML) SYRINGE IV PRN (18:18)
[2020-10-29] MEDS ORDERED: diphenhydrAMINE 50MG/ML VIAL (J1200) IV PRN (18:18)
[2020-10-29] MEDS ORDERED: FENTANYL/ROPIVACAINE/NACL BAG 100 ML EPIDURAL SCH (18:18)
[2020-10-29] MEDS ORDERED: REFRIGERATOR IV KEYS XX PRN (18:18)
[2020-10-29] MEDS ORDERED: NALOXONE INJ 0.4MG/1ML VIAL (J2310 PER 1MG) IV PRN (18:18)
[2020-10-29] MEDS ORDERED: EPIDURAL/PCA KEYS XX PRN (18:18)
[2020-10-29] MEDS ORDERED: LACTATED RINGER'S 1000 ML IV PRN (18:18)
[2020-10-29] MEDS ORDERED: ONDANSETRON 4MG/2ML VIAL IV PRN ×3 (18:18→19:45)
[2020-10-29] MEDS ORDERED: EPIDURAL COMMENT XX SCH (18:18)
--- NOTE | 2020-10-29 18:18 | HPEPDOC ---
Obstetrical History & Physical General Date of Admission Oct 29, 2020 at 15:09 History of Present Illness 25yo at 33w3d with zita twin gestation, presents from OB office with severe range BP and headache. Patient it started yesterday with min relief with Tylenol. Patient was dx with preeclampsia 10/02/20 and has received a course of steroids. also complicated by IUGR of twin A at <3% 1880 gms Chief Complaint: Pre-eclamsia Information Provided By: Patient Age: 25 : 2 Livin Care Care: Good Care Dating Final EDC: Dec 14, 2020 Final EDC by: 1st trimester (US) EGA at Admission: 33 Antepartum Course Diagnos(e)s Preeclampsia Dichorionic diamniotic twin gestation Intrauterine growth restriction of twin A >3% Past Medical History Past Obstetrical History : Past Obstetrical History: Multigravida Type of Delivery: Spontaneous Vaginal Del. Complications: Yes (preeclampsia, hemorrhage) RIDING DOUBLE History: No pertinent history Past Medical History Surgical History: Denies/None Family History Significant Family History: No pertinent family hx Social History Marital Status: Single Psychosocial History: No pertinent psych hx * Smoker: non-smoker Alcohol: Denies Allergies Coded Allergies: No Known Allergies (Unverified , 02/20/18) Medications Scheduled Aspirin (Aspirin) 81 Mg Tab.chew, 1 TAB PO DAILY for pain Ferrous Sulfate (Iron) 325 Mg Tablet, 1 TAB PO DAILY No.137/Iron/Folic Acd ( Vitamin Tablet) 1 Each Tablet, 1 TAB PO DAILY Physical Examination Physical Examination GENERAL: Alert and oriented times three. BREAST: . ABDOMEN: Gravid and non-tender to touch. FETUS: Is vertex (VTX) by sterile vaginal examination (SVE), fetus is vertex (VTX) by Willi. HEART RATE: Regular rate and rhythm. LUNGS: Clear to auscultation (CTA). Vital Signs/I&O Vital Signs Date Time Temp Pulse Resp B/P (MAP) Pulse Ox O2 Delivery O2 Flow Rate FiO2 10/29/20 17:12 98.7 104 18 141/97 (112) Laboratory Data 24H LABS Laboratory Tests 2 10/29/20 15:30: Serology Scanned Report Hepatitis B Testing 10/29/20 15:35: Nucleated Red Blood Cells % (auto) 0.0, Glomerular Filtration Rate > 60.0, Uric Acid 4.1, Total Bilirubin 0.3, Aspartate Amino Transf (AST/SGOT) 8, Alanine Aminotransferase (ALT/SGPT) 9L, Lactate Dehydrogenase 181, Syphilis Serology NONREACTIVE CBC/BMP Laboratory Tests 10/29/20 15:35 Pertinent Laboratoy Data Blood Type: A- RBC Antibody Screen: Negative HIV: Negative Hepatitis B: Negative Hepatitis C: Negative Rapid Plasma Reagin: Nonreactive Rubella: Immune Chlamydia/Gonorrhea: Negative Glucose Tolerance Test: 127 Steroid Therapy Date #1: Oct 02, 2020 Date #2: Oct 03, 2020 Assessment Variability: Moderate Accelerations: Positive Assessment/Plan Assessment 25-year-old 2 para 1 at 33 weeks 2 days estimated gestational age with zita twin gestation with preeclampsia shown severe symptoms with headache severely elevated blood pressures -Breech presentation of twin A -Intrauterine growth prescription of twin A Discussed plan of care with patient regarding severe preeclampsia shown severe features. Plan is to proceed with section secondary to mild presentation. Plan TRA THOMPSON MD. Oct 29, 2020 18:18
[2020-10-29] MEDS ORDERED: PHENYLephrine HCL 500 MCG/5 ML (100MCG/ML) SYRINGE (J2370) As Ordered ONE (18:58)
[2020-10-29] MEDS ORDERED: MORPHINE PRES-FREE INJ 10 MG/10 ML VIAL (J2274) As Ordered ONE (18:58)
[2020-10-29] MEDS ORDERED: ONDANSETRON 4MG/2ML VIAL As Ordered ONE ×2 (18:58→19:57)
[2020-10-29] MEDS ORDERED: dexameTHASONE 4 MG/ML 1ML VIAL (J1100 PER 1MG) As Ordered ONE (18:58)
[2020-10-29] MEDS ORDERED: OXYTOCIN 30 UNITS IN 0.9% NaCl 500ML IV BAG (J2590) As Ordered ONE ×2 (18:58→20:07)
[2020-10-29] MEDS ORDERED: KETOROLAC 60MG 2ML VIAL As Ordered ONE (18:58)
[2020-10-29] MEDS ORDERED: MAGNESIUM *L&D* 4GM/100ML BAG (40MG/ML) As Ordered ONE (19:16)
[2020-10-29] MEDS ORDERED: OXYTOCIN DRIP 30 UNITS in IV 1 EA IV SCH (19:18)
[2020-10-29] MEDS ORDERED: MEASLES,MUMPS,RUBELLA VACCINE INJ (MMR-II) (90707) SC SCH (19:30)
[2020-10-29] MEDS ORDERED: MOM 30ML SUSPENSION UDC PO PRN (19:30)
[2020-10-29] MEDS ORDERED: RHOGAM 300 MCG (1500 IU) INJ (J2790) IM SCH (19:30)
[2020-10-29] MEDS ORDERED: MAG Sulf (L&D) 4 GM/100 ML 4 GM in IV 1 EA IV ONE (19:30)
[2020-10-29] MEDS ORDERED: PERCOCET 5MG/325MG TAB PO PRN (19:30)
[2020-10-29] MEDS ORDERED: oxyCODONE 5MG TAB PO PRN (19:45)
[2020-10-29] MEDS ORDERED: fentaNYL 100 MCG/2 ML INJECTION (J3010) IV PRN (19:45)
[2020-10-29] MEDS ORDERED: MAGNESIUM SULFATE 4% INJ 20GM/500ML (40MG/ML) As Ordered ONE (20:02)
[2020-10-29] MEDS: MAG Sulf (OBGYN) 20GM/500ML 20,000 MG in IV 1 EA IV SCH (20:05)
--- NOTE | 2020-10-29 20:18 | ROOPDOC ---
[facility] Report Of Operation Report of Operation DATE OF PROCEDURE: 10/29/20 SURGEON: Julisa Santizo M.D. VISUAL EDUCATOR: Rick Nicolas DO ( essential for the surgery for tissue retractions, exposure and delivery of ) PROCEDURE: Primary section PREOPERATIVE DIAGNOSIS: 1.Breech twin A 2. [place]in[place] twin gestation 3. Preeclampsia with severe features 4. Intrauterine growth restriction on twin A POSTOPERATIVE DIAGNOSIS: 1.Breech twin A 2. [place] twin gestation 3. Preeclampsia with severe features 4. Intrauterine growth restriction on twin A ANESTHESIA: Spinal ESTIMATED BLOOD LOSS: 800 mL URINE OUTPUT: 50 mL INTRAVENOUS FLUIDS: 850 mL of lactated Ringer's solution PREOPERATIVE ANTIBIOTICS:. 2 g of Ancef OPERATIVE FINDINGS: Twin A liveborn female Apgars 7 and 9 weight 1894 g or 4 lbs. 3 oz. Twin B male liveborn weight 2300 g 5 lbs. 1 oz. Apgars 8 and 8 SPECIMENS: Placenta DESCRIPTION OF PROCEDURE: After informed consent was obtained and written consent was reviewed. The patient was brought to the operating room where spinal anesthesia was placed. She was then placed in the supine position with a left lateral tilt. Plata catheter was placed and to gravity. Patient was then prepped and draped in the normal sterile fashion. A timeout operating room was performed identifying the patient, procedure be performed as well as drug allergies. Anesthesia was tested and deemed to be adequate. Pfannenstiel skin incision was made and this was carried down to the underlying rectus fascia. The fascia was then scored and this incision was extended bilaterally. The fascia was then dissected off the underlying rectus muscle superiorly and inferiorly. The rectus muscles were then in the midline. The peritoneum is then entered. Vesicouterine peritoneum was then tented and excised and a bladder flap was created. Mobius retractor was then placed. Next, a curvilinear incision was then made in the lower uterine segment. Amniotomy was performed, productive, clear fluid. Twin A was then delivered through the incision breech and cord was clamped 2 was cut infant was taken over the warmer with a good cry. Amniotomy was then performed of twin B twin B was delivered cephalic atraumatic cord was clamped 2 was cut was taken over to the warmer with good cry. The uterus was cleared of all clots and debris and the uterine incision was then closed using 0 Vicryl in a running locking fashion followed by a second layer of 0 Vicryl for imbrication in a nonlocking fashion. The abdomen suctioned. Surgical sites reinspected and noted be hemostatic. The retractor was then removed. The anterior peritoneum was then reapproximated with 3-0 Vicryl. The rectus muscles were reapproximated 3-0 Vicryl. The fascia was then closed using 0 Vicryl in a running nonlocking fashion. The subcutaneous tissues was then irrigated and suctioned. Subcutaneous tissue was reapproximated using 3-0 Vicryl. Several subdermal stitch is placed using 3-0 Vicryl and the skin was closed with 4-0 Monocryl and subcuticular fashion. This incision was then cleaned and dried and was dressed. The patient was then taken to recovery in stable condition. All counts were correct. My surgical orderly Dr. Nicolas played in an essential role during the operation. He assisted with tissue identification retraction, delivery of the , as well as wound closure. JULISA SANTIZO MD. Oct 29, 2020 20:19
[2020-10-29] MEDS: DOCUSATE SODIUM 100MG CAPSULE PO SCH (23:01)
[2020-10-30] VITALS (27 sets, daily range): BP systolic 125–153; BP diastolic 67–97
[2020-10-30] MEDS: KETOROLAC 30 MG/ML 1ML VIAL IV SCH ×3 (01:07→19:20)
[2020-10-30] MEDS: LR 1,000 ML IV SCH ×2 (01:31→12:00)
[2020-10-30] MEDS: MAG Sulf (OBGYN) 20GM/500ML 20,000 MG in IV 1 EA IV SCH (06:16)
[2020-10-30 07:48] LABS: HEMATOCRIT 28.6 % (36.0-47.0); MEAN CORPUSCULAR HEMOGLOBIN 27.5 pg (27.0-33.0); MEAN CORPUSCULAR HGB CONC 31.8 g/dl (32.0-36.5); MEAN CORPUSCULAR VOLUME 86.4 fl (80.0-96.0); PLATELET COUNT, AUTOMATED 143 10^3/uL (150-450); RED BLOOD COUNT 3.31 10^6/uL (4.00-5.40); WHITE BLOOD COUNT 11.2 10^3/uL (4.0-10.0)
--- NOTE | 2020-10-30 07:59 | IPNPDOC ---
Progress Note Date of Service: Oct 30, 2020 Day#: 1 Progress Note SUBJECT: Doing well without complaints. Pain is well-controlled. Her headache has resolved denies any visual changes or abdominal pain. Has had adequate urine output. OBJECTIVE: VITAL SIGNS: Within normal limits, afebrile. Alert and oriented times three. Abdomen: Fundus firm at U-2. Soft, NTTP. Incision: dressed Ext: neg calf tenderness. ASSESSMENT: /postoperative day #1 status post delivery. Recovering in stable condition. Preeclampsia with severe features currently stable. Magnesium sulfate therapy has been on for more than 12 hours. Plan to continue to urine output creases PLAN: 1. Continue routine /postoperative care VS, I&O, 24H, Fishbone Vital Signs/I&O Vital Signs Date Time Temp Pulse Resp B/P (MAP) Pulse Ox O2 Delivery O2 Flow Rate FiO2 10/30/20 06:36 97.6 82 16 133/72 (92) Room Air 10/29/20 20:23 99 I&O- Last 24 Hours up to 6 AM 10/30/20 06:00 Intake Total 2505 ml Output Total 2435 ml Balance 70 ml Laboratory Data 24H LABS Laboratory Tests 2 10/29/20 15:30: Serology Scanned Report Hepatitis B Testing 10/29/20 15:35: Nucleated Red Blood Cells % (auto) 0.0, Glomerular Filtration Rate > 60.0, Uric Acid 4.1, Total Bilirubin 0.3, Aspartate Amino Transf (AST/SGOT) 8, Alanine Aminotransferase (ALT/SGPT) 9L, Lactate Dehydrogenase 181, Syphilis Serology NONREACTIVE CBC/BMP Laboratory Tests 10/29/20 15:35 TRA THOMPSON MD. Oct 30, 2020 07:59
[2020-10-30] MEDS ORDERED: IBUP80TA PO (08:01)
[2020-10-30] MEDS ORDERED: PERCOCET PO (08:01)
[2020-10-30 08:02] LABS: HEMOGLOBIN 9.1 g/dl (12.0-15.5)
[2020-10-30] MEDS: PRENATAL VITAMINS CHEWABLE TABLET PO SCH (09:00)
[2020-10-30] MEDS: DOCUSATE SODIUM 100MG CAPSULE PO SCH ×2 (09:00→20:58)
[2020-10-30] MEDS ORDERED: KETOROLAC 30 MG/ML 1ML VIAL As Ordered ONE (19:14)
[2020-10-30] MEDS ORDERED: IBUPROFEN 800 MG TAB PO SCH (21:00)
[2020-10-31] VITALS (7 sets, daily range): BP systolic 133–145; BP diastolic 78–96
[2020-10-31] MEDS: IBUPROFEN 800 MG TAB PO SCH ×3 (03:43→19:58)
[2020-10-31] MEDS: DOCUSATE SODIUM 100MG CAPSULE PO SCH ×2 (08:42→20:01)
[2020-10-31] MEDS: PRENATAL VITAMINS CHEWABLE TABLET PO SCH (08:42)
[2020-10-31] MEDS: PERCOCET 5MG/325MG TAB PO PRN ×2 (08:43→22:48)
[2020-11-01 02:00] VITALS: BP 119/69
[2020-11-01] MEDS: IBUPROFEN 800 MG TAB PO SCH ×2 (03:27→11:55)
[2020-11-01 06:00] VITALS: BP 136/86
[2020-11-01] MEDS: DOCUSATE SODIUM 100MG CAPSULE PO SCH (08:17)
[2020-11-01] MEDS: PRENATAL VITAMINS CHEWABLE TABLET PO SCH (08:17)
[2020-11-01 10:00] VITALS: BP 144/95
--- NOTE | 2020-11-01 10:33 | DS.PDOC ---
Discharge Summary General Date of Admission Oct 29, 2020 at 15:09 Date of Discharge 11/01/2020 Discharge Summary DATE OF ADMISSION: 10/29/2020 DATE OF DISCHARGE: 11/01/2020 ADMISSION DIAGNOSIS:. Severe preeclampsia at 33+3 weeks gestation, with dichorionic diamniotic twin gestation. Severe growth restriction of twin A. Malpresentation of twin A DISCHARGE DIAGNOSIS: Same; delivered via primary low transverse section DISCHARGE SUMMARY: The patient was admitted at 33+3 weeks gestation with a diagnosis of preeclampsia with severe features. Dichorionic diamniotic twin gestation. malpresentation and growth restriction. malpresentation was the indication for delivery. The section delivery was uncomplicated. Her postoperative course was uncomplicated as well. Patient did not exhibit severe features of preeclampsia during the /postoperative recovery. On postoperative day #3, she was meeting all discharge criteria. PHYSICAL EXAMINATION ON DATE OF DISCHARGE: Normotensive/intermittent mild range elevated blood pressures. Normal heart rate. Afebrile. HEART: Regular rate and rhythm. No murmurs, gallops, or rubs. LUNGS: Clear to auscultation bilaterally. ABDOMEN: Soft, nontender, nondistended. Incision bandage clean and dry. EXTREMITIES: Nonedematous, nontender. She was meeting all discharge criteria on postoperative day #3. We reviewed routine fever, infectious, pain, and bleeding precautions. She is to followup in 1-2 weeks for a blood pressure and incision check. Her postoperative medications are Percocet, Motrin, and Colace. Vital Signs/I&Os Vital Signs Date Time Temp Pulse Resp B/P (MAP) Pulse Ox O2 Delivery O2 Flow Rate FiO2 11/01/20 06:00 98.5 95 16 136/86 (103) 99 Room Air Discharge Medications Scheduled Aspirin (Aspirin) 81 Mg Tab.chew, 1 TAB PO DAILY for pain, (Reported) Ferrous Sulfate (Iron) 325 Mg Tablet, 1 TAB PO DAILY, (Reported) Ibuprofen (Ibuprofen) 800 Mg Tablet, 800 MG PO Q8H No.137/Iron/Folic Acd ( Vitamin Tablet) 1 Each Tablet, 1 TAB PO DAILY, (Reported) Scheduled PRN Oxycodone/Acetaminophen (Oxycodone-Acetaminophen 5-325) 1 Each Tablet, 1-2 TAB PO Q4H PRN for MILD/MODERATE PAIN (PS 1-7) Allergies Coded Allergies: No Known Allergies (Unverified , 02/20/18) MYNOR PETERSEN DO Nov 01, 2020 10:33
== END 2020-11-01 13:42 | disposition home or self-care (01) | DRG 540 ==
LOC: M LDO 14:21 → M LDI 15:09 → M OBS 10-30 20:55
PROVIDERS: ADMIT Obstetrics & Gynecology; ATTEND Obstetrics & Gynecology
PROC: 10D00Z1 Extraction of Products of Conception, Low, Open Approach (ICD-10-PCS; principal; 2020-10-29 17:49)
DX: O14.13 Severe pre-eclampsia, third trimester (principal); O30.043 Twin pregnancy, dichorionic/diamniotic, third trimester; O36.5931 Maternal care for other known or suspected poor fetal growth, third trimester, fetus 1; O32.1XX1 Maternal care for breech presentation, fetus 1; Z3A.33 33 weeks gestation of pregnancy; Z37.2 Twins, both liveborn

== ENCOUNTER → 2021-12-04 | Outpatient (REF) ==
[~2021-12-04] MED LIST changes: +IBUP80TA PO; +PERCOCET PO
== END ==
LOC: M LABSMTC 12:39
PROVIDERS: ATTEND Family Medicine
DX: Z20.822 Contact with and (suspected) exposure to COVID-19 (principal)

== ENCOUNTER → 2023-05-09 | Outpatient (CLI) | payer OTHER ==
[2023-05-09 18:54] LABS: CK-MB VALUE MASS < 1.0 NG/ML (<3.6)
[2023-05-09 18:55] LABS: BASO % 0.5 % (0.0-1.0); EOS # 0.1 10^3/uL (0.0-0.5); EOS % 1.7 % (0.0-3.0); HEMATOCRIT 42.1 % (36.0-47.0); HEMOGLOBIN 13.9 g/dl (12.0-15.5); LYMPH # 2.1 10^3/uL (1.5-5.0); LYMPH % 24.9 % (24.0-44.0); MEAN CORPUSCULAR VOLUME 87.9 fl (80.0-96.0); MONO # 0.5 10^3/uL (0.0-0.8); MONO % 5.4 % (2.0-8.0); NEUTROPHILS # 5.6 10^3/uL (1.5-8.5); PLATELET COUNT, AUTOMATED 168 10^3/uL (150-450); RED BLOOD COUNT 4.79 10^6/uL (4.00-5.40); WHITE BLOOD COUNT 8.4 10^3/uL (4.0-10.0)
[2023-05-09 18:58] LABS: FREE T4 0.92 NG/DL (0.89-1.76)
[2023-05-09 19:00] LABS: C REACTIVE PROTEIN QUANTITATIV < 0.40 MG/DL (<1.0)
[2023-05-09 19:02] LABS: RHEUMATOID FACTOR QUANT < 3.5 IU/ML (<14)
[2023-05-09 19:03] LABS: CPK CREATINE PHOSPHOKINASE 73 U/L (34-145); MB/CK RELATIVE INDEX 1.36 (< OR =4)
[2023-05-09 19:11] LABS: ERYTHROCYTE SEDIMENTATION RATE 6 mm/hr (0-20)
[2023-05-09 19:19] LABS: ALKALINE PHOSPHATASE 46 U/L (46-116); ALT/SGPT 17 U/L (7.0-40); AST/SGOT < 8 U/L (<34); BILIRUBIN,TOTAL 0.3 MG/DL (0.3-1.2); BLOOD UREA NITROGEN 13 MG/DL (9-23); CALCIUM LEVEL 8.7 MG/DL (8.5-10.1); CARBON DIOXIDE LEVEL 25 MMOL/L (20-31); CHLORIDE LEVEL 107 MMOL/L (98-107); CHOLESTEROL LEVEL 161 MG/DL (<200); CREATININE FOR GFR 0.63 MG/DL (0.55-1.30); GLOMERULAR FILTRATION RATE > 60.0 (>60); GLUCOSE, FASTING 101 MG/DL (60-100); HDL CHOLESTEROL 44.7 MG/DL (>40); LDL CHOLESTEROL 92.1 MG/DL (<100); MAGNESIUM LEVEL 1.8 MG/DL (1.8-2.4); NON-HDL-C 116.3 MG/DL; SODIUM LEVEL 138 MMOL/L (136-145); TOTAL PROTEIN 6.6 G/DL (5.7-8.2); TRIGLYCERIDES LEVEL 121 MG/DL (<150)
== END ==
LOC: M PLALAB 14:43
PROVIDERS: ATTEND Nurse Practitioner Family
DX: R06.02 Shortness of breath (principal); I10 Essential (primary) hypertension; R21 Rash and other nonspecific skin eruption; Z13.220 Encounter for screening for lipoid disorders

== ENCOUNTER → 2023-10-26 | Outpatient (REF) | payer OTHER ==
[~2023-10-26] MED LIST changes: +DOXY-443 PO; +LISI20TA33 PO
== END ==
LOC: M SFHCWAGY 10:41
PROVIDERS: ATTEND Nurse Practitioner Family
DX: Z12.4 Encounter for screening for malignant neoplasm of cervix (principal)

== ENCOUNTER 2023-12-02 19:13 | Emergency (ER) | payer OTHER ==
[~2023-12-02] VITALS: Ht 160 cm; Wt 93.5 kg
[~2023-12-02 19:13] MED LIST changes: -DOXY-443 PO; -LISI20TA33 PO
[2023-12-02] MEDS ORDERED: LISI20TA33 PO (19:22)
[2023-12-02 21:08] LABS: BASO % 0.4 % (0.0-1.0); EOS # 0.1 10^3/uL (0.0-0.5); HEMATOCRIT 40.8 % (36.0-47.0); HEMOGLOBIN 14.2 g/dl (12.0-15.5); LYMPH # 2.6 10^3/uL (1.5-5.0); LYMPH % 24.7 % (24.0-44.0); MEAN CORPUSCULAR HEMOGLOBIN 30.5 pg (27.0-33.0); MEAN CORPUSCULAR HGB CONC 34.8 g/dl (32.0-36.5); MEAN CORPUSCULAR VOLUME 87.7 fl (80.0-96.0); MONO # 0.6 10^3/uL (0.0-0.8); NEUTROPHILS # 7.2 10^3/uL (1.5-8.5); NEUTROPHILS % 67.5 % (36.0-66.0); PLATELET COUNT, AUTOMATED 197 10^3/uL (150-450); RED BLOOD COUNT 4.65 10^6/uL (4.00-5.40); WHITE BLOOD COUNT 10.7 10^3/uL (4.0-10.0)
[2023-12-02 21:18] LABS: ERYTHROCYTE SEDIMENTATION RATE 29 mm/hr (0-20)
[2023-12-02 21:32] LABS: BLOOD UREA NITROGEN 11 MG/DL (9-23); CALCIUM LEVEL 8.7 MG/DL (8.5-10.1); CARBON DIOXIDE LEVEL 25 MMOL/L (20-31); CHLORIDE LEVEL 108 MMOL/L (98-107); CREATININE FOR GFR 0.51 MG/DL (0.55-1.30); GLOMERULAR FILTRATION RATE > 60.0 (>60); GLUCOSE, FASTING 96 MG/DL (60-100); POTASSIUM SERUM 3.9 MMOL/L (3.5-5.1); SODIUM LEVEL 139 MMOL/L (136-145)
[2023-12-02] MEDS ORDERED: KETOROLAC 30 MG/ML 1ML VIAL As Ordered ONE (23:29)
[2023-12-03] MEDS ORDERED: DOXY-443 PO (01:04)
[2023-12-03] MEDS ORDERED: DOXYCYCLINE HYCLATE 100MG TABLET PO ONE (01:05)
[2023-12-03 01:25] VITALS: BP 148/97; TEMP 98.9; O2SAT 100
== END 2023-12-03 01:32 | disposition home or self-care (01) ==
LOC: M ED 19:13
DX: L03.115 Cellulitis of right lower limb (principal); I10 Essential (primary) hypertension; Z79.811 Long term (current) use of aromatase inhibitors; Z79.899 Other long term (current) drug therapy

== ENCOUNTER → 2024-02-15 | Outpatient (REF) ==
[~2024-02-15] MED LIST changes: +DOXY-443 PO; +FERR325T14 PO; -IRON325T9 PO; +LISI20TA33 PO
== END ==
LOC: M EMP 14:49
PROVIDERS: ATTEND Family Medicine
DX: Z20.822 Contact with and (suspected) exposure to COVID-19 (principal)

== ENCOUNTER 2024-05-25 12:35 | Emergency (ER) | payer OTHER ==
[~2024-05-25] VITALS: Ht 160 cm; Wt 102.2 kg
[2024-05-25 12:35] VITALS: TEMP 98.3
[~2024-05-25 12:35] MED LIST changes: +DOXY-323 PO; -DOXY-443 PO
[2024-05-25] MEDS: IBUPROFEN 600MG TAB PO ONE (13:18)
[2024-05-25 14:05] VITALS: BP 142/94; O2SAT 97
== END 2024-05-25 14:14 | disposition home or self-care (01) ==
LOC: M ED 12:35
DX: S92.354A Nondisplaced fracture of fifth metatarsal bone, right foot, initial encounter for closed fracture (principal); X50.1XXA Overexertion from prolonged static or awkward postures, initial encounter; Y92.009 Unspecified place in unspecified non-institutional (private) residence as the place of occurrence of the external cause; Y93.9 Activity, unspecified; Y99.9 Unspecified external cause status; I10 Essential (primary) hypertension; Z79.899 Other long term (current) drug therapy

== ENCOUNTER → 2024-06-06 | Outpatient (CLI) | payer OTHER | LOC: M SOG 08:46 | PROVIDERS: ATTEND Physician Assistant | DX: S92.355A Nondisplaced fracture of fifth metatarsal bone, left foot, initial encounter for closed fracture (principal); Y93.9 Activity, unspecified; Y92.9 Unspecified place or not applicable ==

== ENCOUNTER → 2024-06-20 | Outpatient (CLI) | payer OTHER | LOC: M SOG 07:57 | PROVIDERS: ATTEND Physician Assistant | DX: S92.354D Nondisplaced fracture of fifth metatarsal bone, right foot, subsequent encounter for fracture with routine healing (principal) ==

== ENCOUNTER → 2024-08-01 | Outpatient (CLI) | payer OTHER | LOC: M SOG 07:57 | PROVIDERS: ATTEND Physician Assistant | DX: Z53.9 Procedure and treatment not carried out, unspecified reason (principal) ==

== ENCOUNTER → 2024-08-30 | Outpatient (REF) | payer OTHER ==
[~2024-08-30] MED LIST changes: -DOXY-323 PO; +DOXY-441 PO
== END ==
LOC: M SFHCWAGY 14:34
PROVIDERS: ATTEND Nurse Practitioner Family
DX: Z12.4 Encounter for screening for malignant neoplasm of cervix (principal)

== ENCOUNTER → 2024-09-05 | Outpatient (CLI) | payer OTHER | LOC: M SOG 07:32 | PROVIDERS: ATTEND Physician Assistant | DX: S92.354D Nondisplaced fracture of fifth metatarsal bone, right foot, subsequent encounter for fracture with routine healing (principal) ==

== ENCOUNTER → 2024-10-02 | Outpatient (REF) | payer OTHER | LOC: M LAB REF 20:41 | PROVIDERS: ATTEND Physician Assistant | DX: B34.9 Viral infection, unspecified (principal) ==

== ENCOUNTER 2024-12-29 18:02 | Emergency (ER) | payer OTHER ==
[~2024-12-29] VITALS: Ht 160 cm; Wt 98.8 kg
[2024-12-29 19:34] LABS: BASO % 0.4 % (0.0-1.0); EOS # 0.2 10^3/uL (0.0-0.5); EOS % 1.7 % (0.0-3.0); HEMATOCRIT 41.8 % (36.0-47.0); HEMOGLOBIN 14.5 g/dl (12.0-15.5); LYMPH # 2.1 10^3/uL (1.5-5.0); LYMPH % 23.6 % (24.0-44.0); MEAN CORPUSCULAR HEMOGLOBIN 29.5 pg (27.0-33.0); MEAN CORPUSCULAR HGB CONC 34.7 g/dl (32.0-36.5); MONO # 0.6 10^3/uL (0.0-0.8); MONO % 6.4 % (2.0-8.0); NEUTROPHILS % 67.6 % (36.0-66.0); PLATELET COUNT, AUTOMATED 218 10^3/uL (150-450); RED BLOOD COUNT 4.92 10^6/uL (4.00-5.40); WHITE BLOOD COUNT 8.9 10^3/uL (4.0-10.0)
[2024-12-29 20:00] LABS: BLOOD UREA NITROGEN 15 MG/DL (9-23); CALCIUM LEVEL 9.4 MG/DL (8.5-10.1); CARBON DIOXIDE LEVEL 23 MMOL/L (20-31); CHLORIDE LEVEL 107 MMOL/L (98-107); CK-MB VALUE MASS < 1.0 NG/ML (<3.6); GLOMERULAR FILTRATION RATE > 60.0 (>60); GLUCOSE, FASTING 96 MG/DL (60-100); POTASSIUM SERUM 3.9 MMOL/L (3.5-5.1); SODIUM LEVEL 141 MMOL/L (136-145)
[2024-12-29 20:02] LABS: THYROID STIMULATING HORMONE 0.744 uIU/ML (0.55-4.78)
[2024-12-29 20:03] LABS: CPK CREATINE PHOSPHOKINASE 83 U/L (34-145)
[2024-12-29 20:07] LABS: HCG, SERUM QUALITATIVE NEGATIVE (NEGATIVE)
[2024-12-29 20:41] LABS: ERYTHROCYTE SEDIMENTATION RATE 22 mm/hr (0-20)
[2024-12-29] MEDS ORDERED: LISI20TA33 PO (22:10)
[2024-12-29] MEDS: KETOROLAC 30 MG/ML 1ML VIAL IM ONE (22:16)
[2024-12-29 22:18] VITALS: BP 147/101; TEMP 97.6; O2SAT 99
== END 2024-12-29 22:30 | disposition home or self-care (01) ==
LOC: M ED 18:02
DX: G44.201 Tension-type headache, unspecified, intractable (principal); I10 Essential (primary) hypertension; Z79.899 Other long term (current) drug therapy
CPT/HCPCS: 80048; 82550; 82553; 84443; 84484; 84703; 85025; 85652; 86140; 93005; 96372; 99284; J1885

== ENCOUNTER → 2025-01-05 | Outpatient (REF) | payer OTHER | LOC: M LAB REF 16:01 | PROVIDERS: ATTEND Physician Assistant | DX: J02.9 Acute pharyngitis, unspecified (principal) ==

== ENCOUNTER 2025-04-11 17:11 | Emergency (ER) | payer OTHER ==
[~2025-04-11] VITALS: Ht 160 cm; Wt 99.3 kg
[2025-04-11 21:35] VITALS: TEMP 97.7
[2025-04-11] MEDS ORDERED: PROHANCE 279.3MG/ML 15ML VIAL As Ordered ONE (22:04)
[2025-04-11] MEDS ORDERED: PROHANCE 279.3MG/ML 5ML VIAL As Ordered ONE (22:04)
[2025-04-11 23:45] VITALS: BP 145/95; O2SAT 95
== END 2025-04-11 23:56 | disposition home or self-care (01) ==
LOC: M ED 17:11
DX: H47.10 Unspecified papilledema (principal); I10 Essential (primary) hypertension; Z79.899 Other long term (current) drug therapy
CPT/HCPCS: 70546; 70553; 99284; A9576

== ENCOUNTER → 2025-10-31 | Outpatient (REF) | payer OTHER ==
[2025-10-31 13:21] LABS: ALT/SGPT 24 U/L (7.0-40); AST/SGOT 12 U/L (<34); CALCIUM LEVEL 9.4 MG/DL (8.5-10.1); CARBON DIOXIDE LEVEL 26 MMOL/L (20-31); CHLORIDE LEVEL 105 MMOL/L (98-107); CHOLESTEROL LEVEL 205 MG/DL (<200); CHOLESTEROL RISK RATIO 4.38 (<5); CREATININE FOR GFR 0.58 MG/DL (0.55-1.30); GLOMERULAR FILTRATION RATE > 90.0 (>60); LDL CHOLESTEROL 136.8 MG/DL (<100); NON-HDL-C 158.2 MG/DL; POTASSIUM SERUM 4.0 MMOL/L (3.5-5.1); SODIUM LEVEL 140 MMOL/L (136-145); TRIGLYCERIDES LEVEL 107 MG/DL (<150)
[2025-10-31 13:28] LABS: BASO # 0.0 10^3/uL (0.0-0.2); BASO % 0.6 % (0.0-1.0); EOS # 0.2 10^3/uL (0.0-0.5); EOS % 2.2 % (0.0-3.0); LYMPH # 1.8 10^3/uL (1.5-5.0); LYMPH % 26.8 % (24.0-44.0); MONO # 0.4 10^3/uL (0.0-0.8); MONO % 6.5 % (2.0-8.0); NEUTROPHILS # 4.3 10^3/uL (1.5-8.5); NEUTROPHILS % 63.6 % (36.0-66.0); PLATELET COUNT, AUTOMATED 222 10^3/uL (150-450)
[2025-10-31 13:43] LABS: ESTIMATED AVERAGE GLUCOSE 100.0 MG/DL (60-110)
[2025-10-31 13:52] LABS: HIV 1&2 SCREEN NEGATIVE (NEGATIVE)
[2025-10-31 14:00] LABS: HEPATITIS C VIRUS ABY INDEX < 0.02 INDEX (<0.8)
[2025-10-31 17:02] LABS: Trichomonas vaginalis (AMP) NOT DETECTED (NEGATIVE)
[2025-10-31 17:26] LABS: GC DNA AMPLIFICATION NEGATIVE (NEGATIVE)
[2025-10-31 18:15] LABS: CREATININE, URINE 121.7 MG/DL
[2025-10-31 18:16] LABS: MALB URINE SIEMENS 60.0 MG/L; MAU/CREAT RATIO 49.3 MCG/MG (0.0-30.0)
== END ==
LOC: M LAB REF 12:20
PROVIDERS: ATTEND Nurse Practitioner Family
DX: E66.812 Obesity, class 2 (principal); Z11.9 Encounter for screening for infectious and parasitic diseases, unspecified; R53.83 Other fatigue